=== PATIENT | male | born 1965 | race Two or more races ===

== ENCOUNTER → 2024-05-22 | Outpatient (CLI) | payer BC, SELFPAY ==
--- NOTE | 2024-05-22 09:43 | XR_ITS ---
Examination: Shoulder,right, 3 views Technique: Shoulder AP internal rotation, AP external rotation, Y view shoulder, 3 views Exam date and time :May 22, 2024 1114 hours INDICATIONS: Right shoulder pain beginning 3 weeks ago. FINDINGS: Moderate osteopenia Moderate to advanced narrowing glenohumeral joint Moderate osteoarthritis acromioclavicular joint No fracture or shoulder dislocation IMPRESSION: Moderate to advanced narrowing glenohumeral joint
== END | disposition home or self-care (01) ==
PROVIDERS: PCP Internal Medicine; Referring Provider Nurse Practitioner Family; Visit Provider Nurse Practitioner Family
DX: M25.811 Other specified joint disorders, right shoulder (principal)
CPT/HCPCS: 73030

== ENCOUNTER 2024-07-13 19:28 | Emergency (ER) | payer BC, SELFPAY ==
[2024-07-13 19:29] VITALS: BMI 25.8
[2024-07-13 20:05] VITALS: BP 147/74; PULSE 70; RESP 18; TEMP 36.6; O2SAT 99
--- NOTE | 2024-07-13 20:09 | XR_ITS ---
Examination: CT abdomen and pelvis without contrast. Coronal 3-D reconstructions. Sagittal 2-D reconstructions. Date and time of exam:July 13, 2024 2100 hours INDICATIONS: Left-sided flank pain beginning 3 days ago CTDI: vol (mGy): 6.02 DLP: (mGycm): 356 Technique: Axial images of the abdomen have been obtained, 3 mm slice thickness Intravenous contrast material has not been administered. Low dose protocols were performed. One or more of the following dose reduction techniques were used; automated exposure control, adjustment of the mA and/or KV according to patient size, use of iterative reconstruction technique. Findings: No focal liver or splenic lesions No gallstones No pancreatic or adrenal mass No renal or ureteral calculi, no hydronephrosis Aorta normal size No bowel obstruction No CT findings of appendicitis or diverticulitis No bladder mass or bladder calculi No significant prostatomegaly Diffuse mild to moderate lumbar disc narrowing IMPRESSION: No renal or ureteral calculi, no hydronephrosis No CT findings of bowel obstruction appendicitis or diverticulitis.
--- NOTE | 2024-07-13 20:10 | PD.EDRME ---
Rapid Medical Screening Exam E Arrival date/time: 07/13/24 19:28 58M with no significant PMH presents to ED with 1 day of L flank pain and N/V. Patient denies fall/trauma and dysuria. Chief Complaint: Back Pain/Injury Time Seen by Provider: 07/13/24 22:36 Vital signs: Vital Signs Temperature 97.8 F 07/13/24 20:05 Pulse Rate 70 07/13/24 20:05 Respiratory Rate 18 07/13/24 20:05 Blood Pressure 147/74 H 07/13/24 20:05 Pulse Oximetry (%) 99 07/13/24 20:05 Oxygen Delivery Method Room Air 07/13/24 20:05
[2024-07-13 20:36] LABS: Basophils # (Auto) 0.1 Thou/mm3 (0.0-0.2); Basophils % (Auto) 1 % (0-2.5); Eosinophils # (Auto) 0.3 Thou/mm3 (0.0-0.5); Eosinophils % (Auto) 4 % (0-10); Hemoglobin 13.6 g/dL (13.5-16.0); Immature Granulocytes % (Auto) 0 % (0-0); Immature Granulocytes Auto 0.01 Thou/mm3 (0.00-0.00); Lymphocytes # (Auto) 4.1 Thou/mm3 (1.0-4.8); Lymphocytes % (Auto) 50 % (10-50); Mean Corpuscular Hemoglobin 29.9 pg (25.0-35.0); Mean Corpuscular Volume 88 fL (80-100); Monocytes # (Auto) 0.8 Thou/mm3 (0.0-0.8); Monocytes % (Auto) 9 % (0-12); Neutrophils % (Auto) 37 % (37-80); Nucleated Red Blood Cell % 0 /100 WBC (0); Platelet Count 351 Thou/mm3 (140-440); RDW Standard Deviation 40.9 fL (35.1-43.9); Red Blood Count 4.55 Miln/mm3 (4.50-5.90); White Blood Count 8.2 Thou/mm3 (3.8-10.6)
[2024-07-13 20:49] LABS: Collection Type, Urine Clean Catch
[2024-07-13 20:52] LABS: Alanine Aminotransferase 21 U/L (10-49); Albumin, Serum 4.6 gm/dL (3.5-5.0); Albumin/Globulin Ratio 1.7 (1.2-2.2); Alkaline Phosphatase 69 U/L (46-116); Anion Gap 8 (7-16); Aspartate Amino Transferase 31 U/L (0-34); BUN/Creatinine Ratio 20 Ratio (12-20); Bilirubin,Total 0.6 mg/dL (0.3-1.2); Blood Urea Nitrogen 20 mg/dL (9-23); Calcium 9.5 mg/dL (8.3-10.6); Calcium (Corrected) 9.5 mg/dL (8.5-10.1); Carbon Dioxide 27.6 mMol/L (20.0-31.0); Chloride 107 mMol/L (98-107); Estimated Creatinine Clearance 74.4 mL/min (>60); Globulin 2.7 gm/dL (2.3-3.5); Glucose 93 mg/dL (74-106); Lipase 34 U/L (12-53); Osmolality,Calculated 287 (275-295); Sodium 143 mMol/L (136-145); Total Protein 7.3 gm/dL (5.7-8.2); eGFR > 60 See Note
[2024-07-13 21:03] LABS: Bilirubin,Urine Negative (Negative); Blood,Urine Negative (Negative); Clarity,Urine Clear (Clear/Hazy); Color,Urine Lt-Yellow (Lt Yel-Yel); Culture Indicated,Urine Not Indicated; Glucose, Urine Negative (Negative); Ketones,Urine Negative (Negative); Leukocyte Esterase,Urine Negative (Negative); Nitrite,Urine Negative (Negative); PH,Urine 6.5 (5.0-7.0); Protein,Urine Negative (Neg - Trace); RBC,Urine 7 /hpf (0-3); Squamous Epithelial Cell,Urine 1 /hpf (0-5); Urobilinogen,Urine Negative mg/dL (0.0-1.0); WBC,Urine 2 /hpf (0-5)
[2024-07-13] MEDS: KETOROLAC INJ 60 MG/2 ML VIAL IM (21:41)
[2024-07-13] MEDS: ONDANSETRON ODT 4 MG TABRAP PO (21:41)
--- NOTE | 2024-07-13 22:48 | PD.EDADULT ---
ED General RME/HPI General Chief complaint: Back Pain/Injury Stated complaint: LT FLANK PAIN Time Seen by Provider: 07/13/24 22:36 Arrival date/time: 07/13/24 19:28 RME / HPI RME / HPI narrative: 58-year-old male patient with no significant past medical history, came in for evaluation regarding left flank pain. Onset of symptoms earlier today as left flank pain, described as sharp pain, severity 20 out of 10 according to him. Nonradiating. Patient denies any vomiting denies any nausea denies any hematuria denies any dysuria denies any fever. Patient also denies any trauma or fall. No medications taken prior to arrival. Related Data Previous Rx's ?Medication ?Instructions ?Recorded HYDROCODONE BIT/ACETAMINOPHEN 1 tab PO Q4-6HR PRN PAIN #20 tabs 07/16/13 (Vicodin 5/300) ibuprofen 600 mg tablet 600 mg PO TIDPC #60 tabs 07/16/13 hydrocodone 5 mg-acetaminophen 325 1 tab PO TID #20 tabs 01/31/22 mg tablet cefuroxime axetil 500 mg tablet 500 mg PO BID #14 tabs 02/19/23 Allergies Allergy/AdvReac Type Severity Reaction Status Date / Time NKA* Allergy Uncoded 02/19/23 10:48 Review of Systems Review of Systems Narrative Review of Systems: Review of system reviewed and within normal limits except mentioned in HPI ED Exam Narrative Physical exam: VITAL SIGNS: Reviewed. GENERAL APPEARANCE: Alert and interactive, follows commands, no acute distress, HEAD AND FACE: Non-traumatic. ENT: PERRL, pink conjunctivitis, eyelid no trauma, Mucous membrane moist. NECK: Supple, nontender, no nuchal rigidity. ABDOMEN: Soft, positive bowel sounds, nondistended, no guarding, nontender, no rebound, no masses, left flank tenderness RECTAL: Deferred. GENITAL: Deferred. NEUROLOGICAL: Gross motor function intact, Appropriate for age. MUSCULOSKELETAL: low back nontender, full range of motion. EXTREMITIES: Nontender, full range of motion. SKIN: Color pink, dry, no rash, LYMPHATICS: Deferred. Course Quality Measures none Orders Category Date Time Status CT abdomen pelvis wo con Stat Exams 07/13/24 20:09 Completed CBC Stat Lab 07/13/24 20:19 Completed CMP [Comprehensive Metabolic Panel] Stat Lab 07/13/24 20:19 Completed Lipase Stat Lab 07/13/24 20:19 Completed Urinalysis, C/S if Indicated Stat Lab 07/13/24 20:23 Completed Ketorolac Inj [Toradol Inj] Med 07/13/24 20:09 Discontinued 60 mg IM X1 ONE Ondansetron Odt [Zofran Odt] Med 07/13/24 20:09 Discontinued 4 mg PO X1 ONE Vital Signs Vital signs: Vital Signs Temperature 97.8 F 07/13/24 20:05 Pulse Rate 70 07/13/24 20:05 Respiratory Rate 18 07/13/24 20:05 Blood Pressure 147/74 H 07/13/24 20:05 Pulse Oximetry (%) 99 07/13/24 20:05 Oxygen Delivery Method Room Air 07/13/24 20:05 [facility] Patient data External records reviewed:: None Clinical information provided by:: patient Social determinants that could affect healthcare access:: none Patient has the following chronic illnesses:: None How is presenting disease/condition affected by chronic disease/condition?: no chronic disease Evaluation data The following diagnostics were reviewed and interpreted by me:: lab results and radiology exam(s) Lab and/or radiology exams considered but not ordered:: None Interpretation Summary: Patient's workup today all came back normal urinalysis positive for hematuria otherwise no UTI. CT scan of the abdomen and pelvis came back unremarkable. No stones noted, no abnormality noted Medications Medications considered but not ordered:: None Medication administrations:: Medication Administration History Discontinued Medications Ketorolac Tromethamine (Ketorolac Inj 60 Mg/2 Ml Vial) 60 mg IM X1 ONE Stop: 07/13/24 20:10 Last Admin: 07/13/24 21:41 Dose: 60 mg Documented By: Ondansetron HCl (Ondansetron Odt 4 Mg Tabrap) 4 mg PO X1 ONE; Protocol Stop: 07/13/24 20:10 Last Admin: 07/13/24 21:41 Dose: 4 mg Documented By: Toradol and Zofran Consultations Consultation(s) initiated? (list below): No Diagnosis Differential Diagnosis ED Complaint MDM: Left flank pain, renal colic, muscular pain Most likely diagnosis given after review of the tests above:: Renal colic Admission Indicated Admission indicated?: not indicated Explain why admission is indicated or not indicated:: Stable. Patient is telling me that his pain is totally gone. Admission Request Was there a request for admission?: No Disposition Plan Disposition Plan: Discharge Discharge Attestation Discharge Attestation: The patient and all family members were given an opportunity to ask questions and understood the discharge instructions. Discharge instructions specifically effects, indications for sooner follow up or return to the emergency department, and the expected course of current diagnosis. Patient condition: Stable Medical Decision Making Differential Diagnosis Differential Diagnosis: Left flank pain, renal colic, muscular pain Lab Data 07/13/24 20:19 07/13/24 20:19 Labs: Lab Results 07/13/24 07/13/24 Range/Units 20:19 20:23 WBC 8.2 (3.8-10.6) Thou/mm3 RBC 4.55 (4.50-5.90) Miln/mm3 Hgb 13.6 (13.5-16.0) g/dL Hct 40.0 L (41.0-53.0) % MCV 88 (80-100) fL MCH 29.9 (25.0-35.0) pg MCHC 34.0 (31.0-37.0) g/dl RDW Std Deviation 40.9 (35.1-43.9) fL Plt Count 351 (140-440) Thou/mm3 Neut % (Auto) 37 (37-80) % Lymph % (Auto) 50 (10-50) % [place] % (Auto) 9 (0-12) % Eos % (Auto) 4 (0-10) % Baso % (Auto) 1 (0-2.5) % Neut # (Auto) 3.0 (1.8-7.7) Thou/mm3 Lymph # (Auto) 4.1 (1.0-4.8) Thou/mm3 [place] # (Auto) 0.8 (0.0-0.8) Thou/mm3 Eos # (Auto) 0.3 (0.0-0.5) Thou/mm3 Baso # (Auto) 0.1 (0.0-0.2) Thou/mm3 Immature Gran # (Auto) 0.01 H (0.00-0.00) Thou/mm3 Absolute Nucleated RBC 0.00 (0.00-0.00) Thou/mm3 Immature Gran % 0 (0-0) % Nucleated RBC % 0 (0) /100 WBC Sodium 143 (136-145) mMol/L Potassium 4.0 (3.4-5.1) mMol/L Chloride 107 (98-107) mMol/L Carbon Dioxide 27.6 (20.0-31.0) mMol/L Anion Gap 8 (7-16) BUN 20 (9-23) mg/dL Creatinine 1.0 (0.6-1.3) mg/dL Estim Creat Clear Calc 74.4 (>60) mL/min eGFR > 60 (60 - ) See Note BUN/Creatinine Ratio 20 (12-20) Ratio Glucose 93 (74-106) mg/dL Calculated Osmolality 287 (275-295) Calcium 9.5 (8.3-10.6) mg/dL Corrected Calcium 9.5 (8.5-10.1) mg/dL Total Bilirubin 0.6 (0.3-1.2) mg/dL AST 31 (0-34) U/L ALT 21 (10-49) U/L Alkaline Phosphatase 69 (46-116) U/L Total Protein 7.3 (5.7-8.2) gm/dL Albumin 4.6 (3.5-5.0) gm/dL Globulin 2.7 (2.3-3.5) gm/dL Albumin/Globulin Ratio 1.7 (1.2-2.2) Lipase 34 (12-53) U/L Ur Collection Type Clean Catch Urine Color Lt-Yellow (Lt Yel-Yel) Urine Clarity Clear (Clear/Hazy) Urine pH 6.5 (5.0-7.0) Ur Specific [place] 1.030 (1.001-1.035) Urine Protein Negative (Neg - Trace) Urine Glucose (UA) Negative (Negative) Urine Ketones Negative (Negative) Urine Blood Negative (Negative) Urine Nitrite Negative (Negative) Urine Bilirubin Negative (Negative) Urine Urobilinogen (Auto) Negative (0.0-1.0) mg/dL Ur Leukocyte Esterase Negative (Negative) Urine RBC 7 H (0-3) /hpf Urine WBC 2 (0-5) /hpf Ur Squamous Epith Cells 1 (0-5) /hpf Urine Bacteria None (None) Ur Culture Indicated? Not Indicated Discharge Plan Plan Patient Disposition: HOME (Self Care) Disposition Comment: Stable Prescriptions/Referrals Prescriptions/Med Rec: No Action ibuprofen 600 MG tablet 600 mg PO TIDPC Qty: 60 0RF HYDROCODONE BIT/ACETAMINOPHEN (Vicodin 5/300) 1 TAB tablet 1 tab PO Q4-6HR PRN (Reason: PAIN) Qty: 20 0RF hydrocodone-acetaminophen 5-325 mg tablet 1 tab PO TID MDD 3 Qty: 20 0RF cefuroxime axetil 500 mg tablet 500 mg PO BID Qty: 14 0RF Referrals: Ruiz Cuadra MD [Primary Care Provider] - In 1 week Problem List Clinical Impression: Renal colic Patient/Caregiver Discharge Instructions Discharge Activity: activity as tolerated Education Materials: Anatomy of the Male Urinary Tract Additional Instructions: Thank you for the opportunity for serving you today. You are stable for discharged . You are advised to: Follow-up with your PCP in 1 to 2 days Return to ED for worsening of symptoms Increase oral fluids Take [id number] Tylenol or Motrin as needed for pain Print Language: Setswana Stand Alone Forms: Flor Award Info., Patient Portal Info Letter DOUG/SHAWNA Supervising Physician DOUG/SHAWNA Supervising Physician: Dr Jameson
== END 2024-07-13 22:55 | disposition home or self-care (01) ==
PROVIDERS: Physician Assistant; Emergency Provider Emergency Medicine; PCP Internal Medicine
DX: N23 Unspecified renal colic (principal)
CPT/HCPCS: 36415; 74176; 80053; 81001; 83690; 85025; 96372; 99284; J1885; Q0162

== ENCOUNTER → 2024-08-23 | Outpatient (CLI) | payer BC, SELFPAY ==
--- NOTE | 2024-08-23 09:30 | XR_ITS ---
Examination: MRI lumbar spine without contrast Date and time of exam: August 23, 2024 1120 hrs. Indications: Lower back pain radiating down the right leg beginning June 30, 2024 Technique: Multiple MRI axial and sagittal sections lumbar spine. Sagittal T2-weighted images, TR 3500, TE 118 T1 weighted transverse sections, TR 688 T8.5, T2-weighted sagittal sections T1 weighted sagittal sections TR 621, TE 30 T2 axial sections, TR 4, 190, TE 84. Findings: Grade 1 anterolisthesis L5 on S1 Moderate disc narrowing L4-L5 Diffuse lumbar disc desiccation L5-S1 7 mm central lumbar disc bulge extending to the right foramen with moderate right L5 ganglionic compression L4-L5 11 mm extruded central disc severely indenting the ventral margin thecal sac, extending to the right foramen producing severe right [id number] compression More cephalad levels unremarkable Impression: L5-S1 7 mm central lumbar disc bulge extending to the right foramen with moderate right L5 ganglionic compression L4-L5 11 mm extruded central disc severely indenting the ventral margin thecal sac, extending to the right foramen producing severe right L4 ganglionic compression
== END | disposition home or self-care (01) ==
LOC: SMRI 09:21
PROVIDERS: PCP Nurse Practitioner Family; Referring Provider Nurse Practitioner Family; Visit Provider Nurse Practitioner Family
DX: M51.379 Other intervertebral disc degeneration, lumbosacral region without mention of lumbar back pain or lower extremity pain (principal); M51.369 Other intervertebral disc degeneration, lumbar region without mention of lumbar back pain or lower extremity pain; G95.20 Unspecified cord compression
CPT/HCPCS: 72148

== ENCOUNTER 2024-08-27 07:37 | Emergency (ER) | payer BC, SELFPAY ==
[2024-08-27 07:48] VITALS: BP 150/81; PULSE 70; RESP 18; TEMP 36.6; O2SAT 99; BMI 25.0
[2024-08-27] MEDS: DEXAMETHASONE SOD PHOS INJ 10 MG/ML VIAL PO (08:18)
[2024-08-27] MEDS: ONDANSETRON ODT 4 MG TABRAP PO (08:18)
[2024-08-27] MEDS: MORPHINE SULF INJ 10 MG/ML VIAL 4 MG IM (08:19)
--- NOTE | 2024-08-27 08:28 | PD.EDBACK ---
ED Back Injury Pain RME/HPI General Chief Complaint: Back Pain/Injury Stated Complaint: LOWER BACK PAIN RADIATING DOWN RIGHT LEG Time Seen by Provider: 08/27/24 07:51 Source: patient Arrival date/time: 08/27/24 07:37 59-year-old male with no known medical history presents to the emergency room with a chief complaint of lumbar back pain that radiates down his right leg x 1 week Mode of arrival: ambulatory Limitations: no limitations Related Data Previous Rx's ?Medication ?Instructions ?Recorded HYDROCODONE BIT/ACETAMINOPHEN 1 tab PO Q4-6HR PRN PAIN #20 tabs 07/16/13 (Vicodin 5/300) ibuprofen 600 mg tablet 600 mg PO TIDPC #60 tabs 07/16/13 hydrocodone 5 mg-acetaminophen 325 1 tab PO TID #20 tabs 01/31/ mg tablet cefuroxime axetil 500 mg tablet 500 mg PO BID #14 tabs 02/19/23 famotidine 40 mg tablet (Pepcid) 40 mg PO QDAY #7 tabs 08/27/24 hydrocodone 5 mg-acetaminophen 325 1 tab PO BID PRN pain #10 tabs 08/27/24 mg tablet prednisone 20 mg tablet 40 mg (2 x 20 mg) PO QDAY 4 days 08/27/24 #8 tabs Allergies Allergy/AdvReac Type Severity Reaction Status Date / Time NKA* Allergy Uncoded 08/27/24 07:42 Review of Systems Review of Systems Systems Reviewed: All systems reviewed, normal except as documented Constitutional Constitutional: Reports system reviewed and no additional complaints, except as documented, Denies fatigue, Denies fever(s), Denies headache(s) and Denies weakness Eyes Eyes: Reports system reviewed and no additional complaints, except as documented, Denies blurry vision and Denies change in vision ENT Ears, Nose, Mouth, and Throat: Reports system reviewed and no additional complaints, except as documented, Denies otalgia, Denies headache(s), Denies nasal congestion, Denies throat swelling and Denies vertigo Cardiovascular Cardiovascular: Reports system reviewed and no additional complaints, except as documented, Denies chest pain, Denies dyspnea and Denies dyspnea on exertion Respiratory Respiratory: Reports system reviewed and no additional complaints, except as documented, Denies chest congestion, Denies cough, Denies dyspnea, Denies dyspnea on exertion and Denies wheezing Gastrointestinal Gastrointestinal: Reports system reviewed and no additional complaints, except as documented, Denies abdominal pain, Denies cramping, Denies nausea and Denies vomiting Genitourinary Genitourinary: Reports system reviewed and no additional complaints, except as documented, Denies dysuria and Denies hematuria Musculoskeletal Musculoskeletal: Reports system reviewed and no additional complaints, except as documented, Reports back pain and Denies numbness Integumentary/Breasts Skin/Breast: Reports system reviewed and no additional complaints, except as documented and Denies wounds Neurologic Neurologic: Reports system reviewed and no additional complaints, except as documented, Denies confusion, Denies headache(s), Denies lack of coordination, Denies numbness, Denies vertigo and Denies weakness Psychiatric Psychiatric: Reports system reviewed and no additional complaints, except as documented, Denies anxiety, Denies confusion, Denies depression, Denies paranoia, Denies suicidal ideation and Denies tactile hallucinations Endocrine Endocrine: Reports system reviewed and no additional complaints, except as documented and Denies fatigue Hematologic/Lymphatic Hematologic/Lymphatic: Reports system reviewed and no additional complaints, except as documented and Denies lymphadenopathy Allergic/Immunologic Allergic/Immunologic: Reports system reviewed and no additional complaints, except as documented, Denies throat swelling, Denies urticaria and Denies wheezing ED Exam General Limitations: Present no limitations General appearance: Present alert and in no apparent distress Head Head exam: Present atraumatic Eye Eye exam: Present normal appearance, PERRL and EOMI ENT ENT exam: Present normal exam, normal oropharynx and mucous membranes moist Neck Neck exam: Present normal inspection, full ROM and trachea midline Chest Chest inspection: Present normal inspection and symmetric chest wall rise Respiratory Respiratory exam: Present normal lung sounds bilaterally Cardiovascular Cardiovascular exam: Present regular rate, normal rhythm and normal heart sounds Abdominal Exam Abdominal exam: Present soft and normal bowel sounds Extremities Exam Extremities exam: Present normal inspection and full ROM Back Exam Back exam: Present normal inspection, full ROM and vertebral tenderness; Absent CVA tenderness (R) or CVA tenderness (L) Back 1 view image:  1. Neurological Exam Neurological exam: Present alert, oriented X3, CN II-XII intact and reflexes normal Psychiatric Psychiatric exam: Present normal affect and normal mood Skin Skin exam: Present warm, dry, intact and normal color Course Quality Measures none Orders Category Date Time Status Dexamethasone Inj [Decadron Inj] Med 08/27/24 08:05 Discontinued 10 mg PO X1 ONE Ketorolac Inj [Toradol Inj] Med 08/27/24 08:54 Discontinued 30 mg IM X1 ONE Morphine Inj Med 08/27/24 07:58 Discontinued 4 mg IM X1 ONE Ondansetron Odt [Zofran Odt] Med 08/27/24 07:58 Discontinued 4 mg PO X1 ONE Vital Signs Vital signs: Vital Signs Temperature 97.9 F 08/27/24 07:48 Pulse Rate 70 08/27/24 07:48 Respiratory Rate 18 08/27/24 07:48 Blood Pressure 150/81 H 08/27/24 07:48 Pulse Oximetry (%) 99 08/27/24 07:48 Oxygen Delivery Method Room Air 08/27/24 07:48 O2 saturation 99% within normal limits Back Pain / Injury MDM Narrative MDM Narrative:: 59-year-old male with no known medical history presents to the emergency room with a chief complaint of lumbar back pain that radiates down his right leg x 1 week Patient is hemodynamically stable. Physical examination shows lumbar back pain with palpation. Patient states standing up causes him more pain and he has to sit in a certain position to relieve the pain. At this time the patient denies any numbness to the lower extremities. There is no saddle anesthesia, or loss of bowel or bladder function. Patient states he had an MRI done here at [facility] on 08/23/2024. The results of this MRI showed some bulging in his lumbar spine. I showed the MRI results to my attending physician Dr. Colin and based on a recommendation the only thing we can do for the patient here in the emergency room his pain management. I gave the patient multiple pain medications and dropped on his pain from a 10 out of 10 to a 4 out of 10. I discharged the patient with pain medication and educated him that he will need to follow-up with his primary care provider for referral to a chiropractor or engineering specialist technician Patient was discharged and educated to follow-up with primary care provider in the next 24 to 48 hours and return to the emergency room for any evidence of worsening signs or symptoms Patient data External records reviewed:: [facility] previous records Clinical information provided by:: patient Social determinants that could affect healthcare access:: none Patient has the following chronic illnesses:: No chronic illness How is presenting disease/condition affected by chronic disease/condition?: no chronic disease Evaluation data The following diagnostics were reviewed and interpreted by me:: lab results and radiology exam(s) Lab and/or radiology exams considered but not ordered:: Labs and radiology exams considered and ordered Interpretation Summary: MRI lumbar spine-Findings: Grade 1 anterolisthesis L5 on S1 Moderate disc narrowing L4-L5 Diffuse lumbar disc desiccation L5-S1 7 mm central lumbar disc bulge extending to the right foramen with moderate right L5 ganglionic compression L4-L5 11 mm extruded central disc severely indenting the ventral margin thecal sac, extending to the right foramen producing severe right [id number] compression More cephalad levels unremarkable Impression: L5-S1 7 mm central lumbar disc bulge extending to the right foramen with moderate right L5 ganglionic compression L4-L5 11 mm extruded central disc severely indenting the ventral margin thecal sac, extending to the right foramen producing severe right L4 ganglionic compression Medications / Prescriptions Medications or Prescriptions considered but not ordered:: Medication given Medication administrations:: Medication Administration History Discontinued Medications Dexamethasone Sodium Phosphate (Dexamethasone Sod Phos Inj 10 Mg/Ml Vial) 10 mg PO X1 ONE Stop: 08/27/24 08:06 Last Admin: 08/27/24 08:18 Dose: 10 mg Documented By: FERNANDO Ketorolac Tromethamine (Ketorolac Inj 60 Mg/2 Ml Vial) 30 mg IM X1 ONE Stop: 08/27/24 08:55 Morphine Sulfate (Morphine Sulf Inj 10 Mg/Ml Vial) 4 mg IM X1 ONE Stop: 08/27/24 07:59 Last Admin: 08/27/24 08:19 Dose: 4 mg Documented By: FERNANDO Ondansetron HCl (Ondansetron Odt 4 Mg Tabrap) 4 mg PO X1 ONE; Protocol Stop: 08/27/24 07:59 Last Admin: 08/27/24 08:18 Dose: 4 mg Documented By: FERNANDO Medication given Consultations Consultation(s) initiated? (list below): No Diagnosis Differential diagnosis back pain/injury: lumbar radiculopathy, sciatica, strain of lumbar region, thoracic back pain, discitis and other (Lumbar) Most likely diagnosis given after review of the tests above:: Lumbar disc bulges Admission Indicated Admission indicated?: not indicated Admission Request Was there a request for admission?: No Disposition Plan Disposition Plan: Discharge Discharge Attestation Discharge Attestation: The patient and all family members were given an opportunity to ask questions and understood the discharge instructions. Discharge instructions specifically effects, indications for sooner follow up or return to the emergency department, and the expected course of current diagnosis. Patient condition: Stable Discharge Plan Plan Patient Disposition: HOME (Self Care) Disposition Comment: Stable Prescriptions/Referrals Prescriptions/Med Rec: New hydrocodone-acetaminophen 5-325 mg tablet 1 tab PO BID MDD 10mg PRN (Reason: pain) Qty: 10 0RF prednisone 20 mg tablet 40 mg PO QDAY 4 Days Qty: 8 0RF famotidine [Pepcid] 40 mg tablet 40 mg PO QDAY Qty: 7 0RF No Action ibuprofen 600 MG tablet 600 mg PO TIDPC Qty: 60 0RF HYDROCODONE BIT/ACETAMINOPHEN (Vicodin 5/300) 1 TAB tablet 1 tab PO Q4-6HR PRN (Reason: PAIN) Qty: 20 0RF hydrocodone-acetaminophen 5-325 mg tablet 1 tab PO TID MDD 3 Qty: 20 0RF cefuroxime axetil 500 mg tablet 500 mg PO BID Qty: 14 0RF Referrals: Ruiz Cuadra MD [Primary Care Provider] - In 1 week Problem List Clinical Impression: Bulging of lumbar intervertebral disc Patient/Caregiver Discharge Instructions Education Materials: Back Safety: Bending, ED Back Pain (Acute or Chronic) Additional Instructions: Please follow-up with your primary care provider in the next 24 to 48 hours. You will need a referral to a engineering specialist technician or a chiropractor if the symptoms continue. For any evidence of worsening signs or symptoms return to the emergency room immediately Print Language: Latvian Stand Alone Forms: Flor Award Info., Patient Portal Info Letter DOUG/SHAWNA Supervising Physician DOUG/SHAWNA Supervising Physician: Dr. Colin
[2024-08-27] MEDS: KETOROLAC INJ 60 MG/2 ML VIAL 30 MG IM (09:07)
== END 2024-08-27 09:16 | disposition home or self-care (01) ==
PROVIDERS: Emergency Provider Emergency Medicine; PCP Internal Medicine
DX: M51.360 Other intervertebral disc degeneration, lumbar region with discogenic back pain only (principal)
CPT/HCPCS: 96372; 99283; J1100; J1885; J2270; Q0162

== ENCOUNTER → 2024-12-07 | Outpatient (CLI) | payer BC, SELFPAY ==
--- NOTE | 2024-12-07 | XR_ITS ---
Examination: Lumbar spine 7 views TECHNIQUE: AP, lateral, coned-down lateral lower lumbar spine, standing lateral flexion, extension and extension, RPO, LPO 7 views Date and time: December 07, 2024, 0730 hours Comparison August 30, 2023 INDICATIONS: Low back pain years FINDINGS: Adequate bone mineralization Mild bilateral hip osteoarthritis Diffuse lumbar disc narrowing, advanced at L4-L5 Grade 1 spondylolisthesis of L5 on S1 Significantly reduced range of motion between flexion and extension IMPRESSION: Grade 1 spondylolisthesis L5 on S1 Diffuse lumbar disc narrowing, advanced at L4-L5, significant change compared with August 30, 2023
== END | disposition home or self-care (01) ==
LOC: CDIM 07:13
PROVIDERS: PCP Internal Medicine; Referring Provider Physical Medicine & Rehabilitation Pain Medicine; Visit Provider Physical Medicine & Rehabilitation Pain Medicine
DX: M43.17 Spondylolisthesis, lumbosacral region (principal); M51.86 Other intervertebral disc disorders, lumbar region
CPT/HCPCS: 72114